=== PATIENT | male | born 1940 | race African-American/Black ===

== ENCOUNTER 2017-12-08 14:27 | Inpatient (IN) ==
[2017-12-08] MEDS ORDERED: NITROGLYCERIN 2% OINT 1 INCH/GM PACK TOP STA (14:44)
[2017-12-08] MEDS ORDERED: METOPROLOL TARTRATE 5 MG/5 ML VIAL IV STA (14:44)
[2017-12-08] MEDS ORDERED: ENOXAPARIN 100 MG/ML SYRINGE SUBCUT STA (14:44)
[2017-12-08] MEDS ORDERED: ASPIRIN 325 MG TABLET PO STA (14:44)
[2017-12-08] MEDS ORDERED: MORPHINE 4 MG/1 ML VIAL IV PRN (14:44)
[2017-12-08] MEDS ORDERED: ONDANSETRON 4 MG/2 ML VIAL IV PRN (14:44)
[2017-12-08] MEDS ORDERED: NITROGLYCERIN SL 0.4 MG TABLET SL PRN (14:44)
[2017-12-08 15:20] LABS: Basophils % 0.5 % (0.0-0.8); Eosinophils # 0.2 10*3/uL (0.0-0.87); Eosinophils % 3.3 % (0.00-10.9); Hematocrit 43.9 VOL% (42.0-52.0); Hemoglobin 14.4 GM/DL (14.0-18.0); Immature Granulocytes % 0.2 %; Immature Granulocytes Absolute 0.01 #; Lymphocytes # 1.7 10*3/uL (1.4-4.0); Lymphocytes % 25.5 % (21.2-54.2); Mean Corpuscular HGB Conc 32.8 GM/DL (32-36); Mean Corpuscular Hemoglobin 32 PG (27-34); Mean Corpuscular Volume 97.1 FL (87-102); Mean Platelet Volume 9.2 FL (9.6-12.0); Monocytes # 0.9 10*3/uL (0.11-0.8); Monocytes % 13.7 % (1.7-12.7); Neutrophils # 3.8 10*3/uL (1.4-7.4); Neutrophils % 56.8 % (38.7-73.9); Platelet Count 176 T/CUMM (130-400); Red Blood Count 4.52 MC/CUMM (3.8-5.5); Red Cell Distribution Width 13.6 % (9.3-17.3); White Blood Count 6.6 T/CUMM (4-12)
[2017-12-08 15:30] LABS: PT Patient Result 10.7 SECS
[2017-12-08 15:46] LABS: Albumin 3.5 G/DL (3.4-5.0); Bilirubin,Total 1.2 MG/DL (0.2-1.0); Calcium 8.6 MG/DL (8.5-10.1); Total Protein 6.5 G/DL (6.4-8.3)
[2017-12-08 15:47] LABS: Potassium 3.2 MMOL/L (3.5-5.1)
[2017-12-08] MEDS ORDERED: FAMOTIDINE 20 MG TABLET PO PRN (17:21)
[2017-12-08 17:55] LABS: Hemoglobin A1C 5.4 % (4.2-6.3)
[2017-12-08 18:08] LABS: Theophylline 10.9 UG/ML (10-20)
[2017-12-08] MEDS: APIXABAN 5 MG TABLET PO SCH (18:09)
[2017-12-08] MEDS ORDERED: MAGNESIUM SULF RIDER 4 GM in PREMIX 1 EACH IV PRN (18:52)
[2017-12-08] MEDS ORDERED: MAGNESIUM SULF RIDER 2 GM in PREMIX 1 EACH IV PRN (18:52)
[2017-12-08 20:43] LABS: ABG Base Excess -1.2 MMOL/L (-2.5-2.5); ABG HCO3 23.3 MMOL/L (20-26); ABG Oxygen Saturation 94.3 % (95-100); ABG PCO2 36.5 MM HG (35-48); ABG PH 7.407 (7.35-7.45); ABG PO2 69.5 MM HG (80-95); ABG TCO2 19.9 MMOL/L (23-27); Allen Test Positive
[2017-12-08] MEDS: THEOPHYLLINE ER 300 MG TABLET PO SCH (20:49)
[2017-12-08] MEDS: hydrALAZINE 25 MG TABLET PO SCH (20:49)
[2017-12-08] MEDS: POTASSIUM CHLORIDE 10 MEQ TABLET PO SCH (20:49)
[2017-12-08] MEDS: ATORVASTATIN 10 MG TABLET PO SCH (20:49)
[2017-12-08] MEDS: CARBIDOPA/LEVODOPA 25-100 MG TABLET PO SCH (20:50)
[2017-12-08] MEDS: FINASTERIDE 5 MG TABLET PO SCH (20:50)
[2017-12-08] MEDS: DEXTROSE 5% NACL 0.45% 1,000 ML IV SCH (20:50)
[2017-12-08] MEDS: ACETAMINOPHEN 325 MG TABLET PO SCH (21:48)
[2017-12-08] MEDS: GABAPENTIN 100 MG CAPSULE PO SCH (21:48)
[2017-12-09 05:02] LABS: Basophils % 0.6 % (0.0-0.8); Eosinophils # 0.2 10*3/uL (0.0-0.87); Eosinophils % 4.5 % (0.00-10.9); Hematocrit 36.1 VOL% (42.0-52.0); Hemoglobin 11.9 GM/DL (14.0-18.0); Immature Granulocytes % 0.4 %; Immature Granulocytes Absolute 0.02 #; Lymphocytes # 1.2 10*3/uL (1.4-4.0); Mean Corpuscular Hemoglobin 32 PG (27-34); Mean Corpuscular Volume 98.4 FL (87-102); Mean Platelet Volume 10.1 FL (9.6-12.0); Monocytes # 0.8 10*3/uL (0.11-0.8); Monocytes % 15.2 % (1.7-12.7); Neutrophils # 2.7 10*3/uL (1.4-7.4); Neutrophils % 54.3 % (38.7-73.9); Platelet Count 148 T/CUMM (130-400); Red Blood Count 3.67 MC/CUMM (3.8-5.5); Red Cell Distribution Width 13.5 % (9.3-17.3); White Blood Count 4.9 T/CUMM (4-12)
[2017-12-09] MEDS: APIXABAN 5 MG TABLET PO SCH ×2 (05:14→17:21)
[2017-12-09 05:35] LABS: Alanine Aminotransferase < 6 U/L (16-61); Albumin 2.7 G/DL (3.4-5.0); Alkaline Phosphatase 67 U/L (45-117); Aspartate Amino Transferase 10 U/L (0-37); Blood Urea Nitrogen 11 MG/DL (7-18); Calcium 7.9 MG/DL (8.5-10.1); Glucose 95 MG/DL (74-106); Osmolality,Calculated 286.7 MOS/KG (273-304); Potassium 3.7 MMOL/L (3.5-5.1); Sodium 145 MMOL/L (136-145); Total Protein 4.9 G/DL (6.4-8.3)
[2017-12-09] MEDS: CARBIDOPA/LEVODOPA 25-100 MG TABLET PO SCH ×3 (11:34→20:24)
[2017-12-09] MEDS: hydrALAZINE 25 MG TABLET PO SCH ×3 (11:34→20:24)
[2017-12-09] MEDS: GABAPENTIN 100 MG CAPSULE PO SCH ×3 (11:34→20:24)
[2017-12-09] MEDS: ASPIRIN CHEW 81 MG TABLET PO SCH (11:48)
[2017-12-09] MEDS: amLODIPine 5 MG TABLET PO SCH (11:48)
[2017-12-09] MEDS: THEOPHYLLINE ER 300 MG TABLET PO SCH ×2 (11:48→20:24)
[2017-12-09] MEDS: MAGNESIUM OXIDE 400 MG TABLET PO SCH (11:48)
[2017-12-09] MEDS: PANTOPRAZOLE 40 MG TABLET PO SCH (11:48)
[2017-12-09] MEDS: LISINOPRIL 20 MG TABLET PO SCH (11:48)
[2017-12-09] MEDS: FUROSEMIDE 40 MG/4 ML VIAL IV SCH ×2 (11:51→17:21)
[2017-12-09] MEDS: ACETAMINOPHEN 325 MG TABLET PO SCH ×2 (13:11→20:24)
[2017-12-09] MEDS: DEXTROSE 5% NACL 0.45% 1,000 ML IV SCH ×2 (15:03→23:25)
[2017-12-09] MEDS: FINASTERIDE 5 MG TABLET PO SCH (20:24)
[2017-12-09] MEDS: ATORVASTATIN 10 MG TABLET PO SCH (20:24)
[2017-12-09] MEDS: POTASSIUM CHLORIDE 10 MEQ TABLET PO SCH (20:24)
[2017-12-10 05:35] LABS: Basophils % 0.4 % (0.0-0.8); Eosinophils # 0.2 10*3/uL (0.0-0.87); Hemoglobin 13.3 GM/DL (14.0-18.0); Immature Granulocytes % 0.2 %; Immature Granulocytes Absolute 0.01 #; Lymphocytes # 1.3 10*3/uL (1.4-4.0); Lymphocytes % 24.4 % (21.2-54.2); Mean Corpuscular HGB Conc 34.1 GM/DL (32-36); Mean Corpuscular Hemoglobin 32 PG (27-34); Mean Platelet Volume 9.2 FL (9.6-12.0); Monocytes # 0.8 10*3/uL (0.11-0.8); Neutrophils # 3.1 10*3/uL (1.4-7.4); Platelet Count 173 T/CUMM (130-400); Red Blood Count 4.15 MC/CUMM (3.8-5.5); Red Cell Distribution Width 13.2 % (9.3-17.3); White Blood Count 5.4 T/CUMM (4-12)
[2017-12-10 06:13] LABS: Alanine Aminotransferase < 6 U/L (16-61); Albumin 2.7 G/DL (3.4-5.0); Alkaline Phosphatase 82 U/L (45-117); Aspartate Amino Transferase 14 U/L (0-37); Blood Urea Nitrogen 13 MG/DL (7-18); Calcium 8.3 MG/DL (8.5-10.1); Glucose 90 MG/DL (74-106); Osmolality,Calculated 282.1 MOS/KG (273-304); Potassium 3.1 MMOL/L (3.5-5.1); Sodium 142 MMOL/L (136-145); Total Protein 5.6 G/DL (6.4-8.3)
[2017-12-10] MEDS: APIXABAN 5 MG TABLET PO SCH ×2 (06:20→17:12)
[2017-12-10] MEDS: DEXTROSE 5% NACL 0.45% 1,000 ML IV SCH (06:20)
[2017-12-10] MEDS: POTASSIUM CHLORIDE RIDER 10 MEQ in PREMIX 1 EACH IV PRN ×2 (06:52→08:24)
[2017-12-10] MEDS: hydrALAZINE 25 MG TABLET PO SCH ×3 (09:16→20:53)
[2017-12-10] MEDS: PANTOPRAZOLE 40 MG TABLET PO SCH (09:16)
[2017-12-10] MEDS: LISINOPRIL 20 MG TABLET PO SCH (09:16)
[2017-12-10] MEDS: GABAPENTIN 100 MG CAPSULE PO SCH ×3 (09:16→20:53)
[2017-12-10] MEDS: THEOPHYLLINE ER 300 MG TABLET PO SCH ×2 (09:16→20:53)
[2017-12-10] MEDS: MAGNESIUM OXIDE 400 MG TABLET PO SCH (09:16)
[2017-12-10] MEDS: ASPIRIN CHEW 81 MG TABLET PO SCH (09:17)
[2017-12-10] MEDS: CARBIDOPA/LEVODOPA 25-100 MG TABLET PO SCH ×3 (09:18→20:53)
[2017-12-10] MEDS: amLODIPine 5 MG TABLET PO SCH (09:18)
[2017-12-10] MEDS: ACETAMINOPHEN 325 MG TABLET PO SCH ×2 (09:18→20:53)
[2017-12-10] MEDS: FUROSEMIDE 40 MG/4 ML VIAL IV SCH ×2 (09:20→15:44)
[2017-12-10 09:57] LABS: Apearance,Urine CLEAR (Clear); Bilirubin,Urine Negative (Negative); Blood, Urine Large mg/dL (Negative); Glucose,Urine (UA) Negative (Negative); Ketones,Urine Negative (Negative); Mucus,Urine Occasional /LPF (Occasional); Nitrite,Urine Negative (Negative); Protein,Urine Negative; RBC,Urine 337 /HPF (0-4); Urine Color Yellow (Yellow); Urine Urobilinogen < 2.0 EU/DL (0.2-1.0); WBC,Urine 14 /HPF (0-6)
[2017-12-10] MEDS: POTASSIUM CHLORIDE 20 MEQ PACK PO SCH ×2 (10:24→13:18)
[2017-12-10] MEDS: FINASTERIDE 5 MG TABLET PO SCH (20:53)
[2017-12-10] MEDS: POTASSIUM CHLORIDE 10 MEQ TABLET PO SCH (20:54)
[2017-12-10] MEDS: ATORVASTATIN 10 MG TABLET PO SCH (20:54)
[2017-12-10] MEDS ORDERED: APIXABAN 5 MG TABLET PO SCH (21:00)
[2017-12-11 02:28] LABS: Basophils % 0.5 % (0.0-0.8); Eosinophils # 0.3 10*3/uL (0.0-0.87); Eosinophils % 4.3 % (0.00-10.9); Hematocrit 40.5 VOL% (42.0-52.0); Hemoglobin 14.3 GM/DL (14.0-18.0); Immature Granulocytes % 0.3 %; Immature Granulocytes Absolute 0.02 #; Lymphocytes # 1.3 10*3/uL (1.4-4.0); Lymphocytes % 21.3 % (21.2-54.2); Mean Corpuscular HGB Conc 35.3 GM/DL (32-36); Mean Corpuscular Hemoglobin 33 PG (27-34); Mean Corpuscular Volume 92.9 FL (87-102); Mean Platelet Volume 9.7 FL (9.6-12.0); Monocytes # 0.8 10*3/uL (0.11-0.8); Monocytes % 13.3 % (1.7-12.7); Neutrophils # 3.6 10*3/uL (1.4-7.4); Neutrophils % 60.3 % (38.7-73.9); Platelet Count 173 T/CUMM (130-400); Red Blood Count 4.36 MC/CUMM (3.8-5.5); Red Cell Distribution Width 13.2 % (9.3-17.3); White Blood Count 5.9 T/CUMM (4-12)
[2017-12-11 02:55] LABS: Alanine Aminotransferase < 6 U/L (16-61); Albumin 2.9 G/DL (3.4-5.0); Alkaline Phosphatase 95 U/L (45-117); Aspartate Amino Transferase 15 U/L (0-37); Blood Urea Nitrogen 19 MG/DL (7-18); Calcium 8.9 MG/DL (8.5-10.1); Glucose 112 MG/DL (74-106); Osmolality,Calculated 283.3 MOS/KG (273-304); Potassium 3.5 MMOL/L (3.5-5.1); Sodium 141 MMOL/L (136-145)
[2017-12-11] MEDS: APIXABAN 5 MG TABLET PO SCH ×2 (06:42→17:05)
[2017-12-11] MEDS: LISINOPRIL 20 MG TABLET PO SCH (08:45)
[2017-12-11] MEDS: BISACODYL 5 MG TABLET PO PRN (08:45)
[2017-12-11] MEDS: ACETAMINOPHEN 325 MG TABLET PO SCH ×2 (08:45→20:27)
[2017-12-11] MEDS: GABAPENTIN 100 MG CAPSULE PO SCH ×3 (08:45→20:28)
[2017-12-11] MEDS: hydrALAZINE 25 MG TABLET PO SCH ×3 (08:45→20:26)
[2017-12-11] MEDS: PANTOPRAZOLE 40 MG TABLET PO SCH (08:45)
[2017-12-11] MEDS: THEOPHYLLINE ER 300 MG TABLET PO SCH ×2 (08:45→20:26)
[2017-12-11] MEDS: MAGNESIUM OXIDE 400 MG TABLET PO SCH (08:45)
[2017-12-11] MEDS: CARBIDOPA/LEVODOPA 25-100 MG TABLET PO SCH ×3 (08:46→20:27)
[2017-12-11] MEDS: ASPIRIN CHEW 81 MG TABLET PO SCH (08:46)
[2017-12-11] MEDS: amLODIPine 5 MG TABLET PO SCH (08:46)
[2017-12-11] MEDS: FUROSEMIDE 40 MG/4 ML VIAL IV SCH (08:49)
[2017-12-11] MEDS: cefTRIAXone 2,000 MG in SYRINGE 1 EACH IV SCH (08:51)
[2017-12-11] MEDS ORDERED: LACTULOSE 20 GM/30 ML UDCUP PO ONE (09:14)
[2017-12-11] MEDS ORDERED: MAGNESIUM HYDROXIDE SUSP 30 ML UDCUP PO ONE (09:14)
[2017-12-11] MEDS: POTASSIUM CHLORIDE 20 MEQ TABLET PO SCH ×2 (09:28→12:27)
[2017-12-11] MEDS: FINASTERIDE 5 MG TABLET PO SCH (20:28)
[2017-12-11] MEDS: POTASSIUM CHLORIDE 10 MEQ TABLET PO SCH (20:28)
[2017-12-11] MEDS: ATORVASTATIN 10 MG TABLET PO SCH (20:28)
[2017-12-12 05:00] LABS: Basophils % 0.5 % (0.0-0.8); Eosinophils # 0.3 10*3/uL (0.0-0.87); Eosinophils % 4.7 % (0.00-10.9); Hematocrit 42.9 VOL% (42.0-52.0); Hemoglobin 14.4 GM/DL (14.0-18.0); Immature Granulocytes % 0.5 %; Immature Granulocytes Absolute 0.03 #; Lymphocytes # 1.3 10*3/uL (1.4-4.0); Lymphocytes % 24.5 % (21.2-54.2); Mean Corpuscular HGB Conc 33.6 GM/DL (32-36); Mean Corpuscular Hemoglobin 32 PG (27-34); Mean Platelet Volume 9.4 FL (9.6-12.0); Monocytes # 0.7 10*3/uL (0.11-0.8); Monocytes % 13.1 % (1.7-12.7); Neutrophils # 3.1 10*3/uL (1.4-7.4); Neutrophils % 56.7 % (38.7-73.9); Platelet Count 178 T/CUMM (130-400); Red Blood Count 4.47 MC/CUMM (3.8-5.5); Red Cell Distribution Width 13.4 % (9.3-17.3); White Blood Count 5.5 T/CUMM (4-12)
[2017-12-12 05:39] LABS: Bilirubin,Total 0.5 MG/DL (0.2-1.0); Calcium 8.8 MG/DL (8.5-10.1); Osmolality,Calculated 279.4 MOS/KG (273-304); Potassium 4.2 MMOL/L (3.5-5.1)
[2017-12-12] MEDS: APIXABAN 5 MG TABLET PO SCH ×2 (06:09→17:40)
[2017-12-12] MEDS: BISACODYL 5 MG TABLET PO PRN ×2 (06:09→16:41)
[2017-12-12] MEDS: hydrALAZINE 25 MG TABLET PO SCH ×3 (08:40→21:32)
[2017-12-12] MEDS: MAGNESIUM OXIDE 400 MG TABLET PO SCH (08:40)
[2017-12-12] MEDS: LISINOPRIL 20 MG TABLET PO SCH (08:40)
[2017-12-12] MEDS: PANTOPRAZOLE 40 MG TABLET PO SCH (08:40)
[2017-12-12] MEDS: CARBIDOPA/LEVODOPA 25-100 MG TABLET PO SCH ×3 (08:41→21:26)
[2017-12-12] MEDS: THEOPHYLLINE ER 300 MG TABLET PO SCH ×2 (08:41→21:24)
[2017-12-12] MEDS: amLODIPine 5 MG TABLET PO SCH (08:42)
[2017-12-12] MEDS: ACETAMINOPHEN 325 MG TABLET PO SCH ×2 (08:42→21:27)
[2017-12-12] MEDS: ASPIRIN CHEW 81 MG TABLET PO SCH (08:43)
[2017-12-12] MEDS: GABAPENTIN 100 MG CAPSULE PO SCH ×3 (08:43→21:27)
[2017-12-12] MEDS ORDERED: FUROSEMIDE 40 MG/4 ML VIAL IV SCH (09:00)
[2017-12-12] MEDS: DICLOFENAC 1.3% PATCH 5/PACK TRANSDERM SCH ×2 (15:47→21:24)
[2017-12-12] MEDS ORDERED: amLODIPine 2.5 MG TABLET PO SCH (17:04)
[2017-12-12] MEDS: cefTRIAXone 2,000 MG in SYRINGE 1 EACH IV SCH (17:30)
[2017-12-12] MEDS: FINASTERIDE 5 MG TABLET PO SCH (21:25)
[2017-12-12] MEDS: ATORVASTATIN 10 MG TABLET PO SCH (21:27)
[2017-12-12] MEDS: POTASSIUM CHLORIDE 10 MEQ TABLET PO SCH (21:28)
[2017-12-12] MEDS: POLYETHYLENE GLYCOL POWDER 17 GM PACK PO PRN (22:27)
[2017-12-13] MEDS: APIXABAN 5 MG TABLET PO SCH ×2 (05:48→17:12)
[2017-12-13] MEDS: THEOPHYLLINE ER 300 MG TABLET PO SCH ×2 (10:19→21:03)
[2017-12-13] MEDS: ACETAMINOPHEN 325 MG TABLET PO SCH ×2 (10:19→21:04)
[2017-12-13] MEDS: LISINOPRIL 10 MG TABLET PO SCH (10:20)
[2017-12-13] MEDS: GABAPENTIN 100 MG CAPSULE PO SCH ×3 (10:20→21:03)
[2017-12-13] MEDS: MAGNESIUM OXIDE 400 MG TABLET PO SCH (10:20)
[2017-12-13] MEDS: PANTOPRAZOLE 40 MG TABLET PO SCH (10:21)
[2017-12-13] MEDS: CARBIDOPA/LEVODOPA 25-100 MG TABLET PO SCH ×3 (10:21→21:04)
[2017-12-13] MEDS: ASPIRIN CHEW 81 MG TABLET PO SCH (10:22)
[2017-12-13] MEDS: DICLOFENAC 1.3% PATCH 5/PACK TRANSDERM SCH ×2 (10:22→21:09)
[2017-12-13] MEDS: hydrALAZINE 25 MG TABLET PO SCH (10:33)
[2017-12-13] MEDS: SUCRALFATE 1 GM/10 ML UDCUP PO SCH ×2 (17:12→21:08)
[2017-12-13] MEDS: POTASSIUM CHLORIDE 10 MEQ TABLET PO SCH (21:05)
[2017-12-13] MEDS: FINASTERIDE 5 MG TABLET PO SCH (21:05)
[2017-12-13] MEDS: ATORVASTATIN 10 MG TABLET PO SCH (21:05)
[2017-12-14 05:26] LABS: Calcium 8.5 MG/DL (8.5-10.1); Osmolality,Calculated 279.5 MOS/KG (273-304); Potassium 4.2 MMOL/L (3.5-5.1)
[2017-12-14] MEDS: CARBIDOPA/LEVODOPA 25-100 MG TABLET PO SCH ×3 (09:27→21:46)
[2017-12-14] MEDS: LISINOPRIL 10 MG TABLET PO SCH (09:27)
[2017-12-14] MEDS: GABAPENTIN 100 MG CAPSULE PO SCH ×3 (09:27→21:47)
[2017-12-14] MEDS: MAGNESIUM OXIDE 400 MG TABLET PO SCH (09:27)
[2017-12-14] MEDS: PANTOPRAZOLE 40 MG TABLET PO SCH (09:27)
[2017-12-14] MEDS: ACETAMINOPHEN 325 MG TABLET PO SCH ×2 (09:27→21:47)
[2017-12-14] MEDS: ASPIRIN CHEW 81 MG TABLET PO SCH (09:27)
[2017-12-14] MEDS: THEOPHYLLINE ER 300 MG TABLET PO SCH ×2 (09:27→21:46)
[2017-12-14] MEDS: SUCRALFATE 1 GM/10 ML UDCUP PO SCH ×4 (09:27→21:46)
[2017-12-14] MEDS: APIXABAN 5 MG TABLET PO SCH ×2 (09:28→17:05)
[2017-12-14] MEDS: DICLOFENAC 1.3% PATCH 5/PACK TRANSDERM SCH (11:14)
[2017-12-14] MEDS: POLYETHYLENE GLYCOL POWDER 17 GM PACK PO PRN (21:46)
[2017-12-14] MEDS: FINASTERIDE 5 MG TABLET PO SCH (21:47)
[2017-12-14] MEDS: ATORVASTATIN 10 MG TABLET PO SCH (21:47)
[2017-12-14] MEDS: POTASSIUM CHLORIDE 10 MEQ TABLET PO SCH (21:47)
[2017-12-15 06:01] LABS: Basophils % 0.6 % (0.0-0.8); Eosinophils # 0.2 10*3/uL (0.0-0.87); Eosinophils % 4.4 % (0.00-10.9); Hematocrit 39.2 VOL% (42.0-52.0); Hemoglobin 13.2 GM/DL (14.0-18.0); Immature Granulocytes % 0.4 %; Immature Granulocytes Absolute 0.02 #; Lymphocytes # 1.3 10*3/uL (1.4-4.0); Lymphocytes % 25.7 % (21.2-54.2); Mean Corpuscular HGB Conc 33.7 GM/DL (32-36); Mean Corpuscular Hemoglobin 33 PG (27-34); Mean Corpuscular Volume 96.8 FL (87-102); Mean Platelet Volume 9.4 FL (9.6-12.0); Monocytes # 0.7 10*3/uL (0.11-0.8); Monocytes % 14.1 % (1.7-12.7); Neutrophils # 2.7 10*3/uL (1.4-7.4); Neutrophils % 54.8 % (38.7-73.9); Platelet Count 173 T/CUMM (130-400); Red Blood Count 4.05 MC/CUMM (3.8-5.5); Red Cell Distribution Width 12.8 % (9.3-17.3)
[2017-12-15 06:40] LABS: Calcium 8.5 MG/DL (8.5-10.1); Osmolality,Calculated 282.3 MOS/KG (273-304); Potassium 4.4 MMOL/L (3.5-5.1)
[2017-12-15] MEDS: APIXABAN 5 MG TABLET PO SCH ×2 (07:01→10:07)
[2017-12-15] MEDS: SUCRALFATE 1 GM/10 ML UDCUP PO SCH ×2 (07:01→11:48)
[2017-12-15] MEDS: GABAPENTIN 100 MG CAPSULE PO SCH ×2 (10:01→14:25)
[2017-12-15] MEDS: ASPIRIN CHEW 81 MG TABLET PO SCH (10:01)
[2017-12-15] MEDS: ACETAMINOPHEN 325 MG TABLET PO SCH (10:01)
[2017-12-15] MEDS: LISINOPRIL 10 MG TABLET PO SCH (10:01)
[2017-12-15] MEDS: PANTOPRAZOLE 40 MG TABLET PO SCH (10:01)
[2017-12-15] MEDS: MAGNESIUM OXIDE 400 MG TABLET PO SCH (10:02)
[2017-12-15] MEDS: CARBIDOPA/LEVODOPA 25-100 MG TABLET PO SCH ×2 (10:04→14:25)
[2017-12-15] MEDS: THEOPHYLLINE ER 300 MG TABLET PO SCH (10:05)
[2017-12-15 11:55] VITALS: BP 133/90
== END 2017-12-15 14:40 | disposition home or self-care (01) | DRG 392 ==
LOC: N.ED 14:27 → SUATTDRO 16:31 → N.EDINP 16:31 → N.TELEN 17:46
PROVIDERS: ADMIT Internal Medicine; ATTEND Internal Medicine

== ENCOUNTER 2018-07-28 13:47 | Inpatient (IN) ==
[2018-07-28 14:38] LABS: Basophils % 0.5 % (0.0-0.8); Eosinophils # 0.1 10*3/uL (0.0-0.87); Eosinophils % 1.3 % (0.00-10.9); Hematocrit 45.8 VOL% (42.0-52.0); Hemoglobin 14.9 GM/DL (14.0-18.0); Immature Granulocytes % 0.5 %; Immature Granulocytes Absolute 0.03 #; Lymphocytes # 1.3 10*3/uL (1.4-4.0); Lymphocytes % 20.3 % (21.2-54.2); Mean Corpuscular HGB Conc 32.5 GM/DL (32-36); Mean Corpuscular Hemoglobin 31 PG (27-34); Mean Corpuscular Volume 96.2 FL (87-102); Mean Platelet Volume 9.4 FL (9.6-12.0); Monocytes # 0.6 10*3/uL (0.11-0.8); Neutrophils # 4.4 10*3/uL (1.4-7.4); Neutrophils % 68.4 % (38.7-73.9); Platelet Count 177 T/CUMM (130-400); Red Blood Count 4.76 MC/CUMM (3.8-5.5); Red Cell Distribution Width 13.2 % (9.3-17.3); White Blood Count 6.4 T/CUMM (4-12)
[2018-07-28] MEDS ORDERED: ASPIRIN 325 MG TABLET PO STA (14:52)
[2018-07-28 15:10] LABS: Blood Urea Nitrogen 15 MG/DL (7-18); Calcium 8.9 MG/DL (8.5-10.1); Glucose 100 MG/DL (74-106); Sodium 143 MMOL/L (136-145); Troponin I 0.018 NG/ML (0.00-0.045)
[2018-07-28] MEDS ORDERED: APIXABAN 5 MG TABLET PO SCH (18:00)
[2018-07-28] MEDS: THEOPHYLLINE ER 300 MG TABLET PO SCH (18:29)
[2018-07-28 18:50] LABS: Risk Ratio 2.09
[2018-07-28] MEDS ORDERED: MAGNESIUM OXIDE 400 MG TABLET PO SCH (19:00)
[2018-07-28] MEDS ORDERED: CETIRIZINE 10 MG TABLET PO SCH (19:00)
[2018-07-28] MEDS: FINASTERIDE 5 MG TABLET PO SCH (20:28)
[2018-07-28] MEDS: DOXAZOSIN 1 MG TABLET PO SCH (20:28)
[2018-07-28] MEDS: POTASSIUM CHLORIDE 10 MEQ TABLET PO SCH (20:30)
[2018-07-28] MEDS: TAMSULOSIN 0.4 MG CAPSULE PO SCH (20:31)
[2018-07-28] MEDS: ATORVASTATIN 10 MG TABLET PO SCH (20:31)
[2018-07-28] MEDS: CARBIDOPA/LEVODOPA 25-100 MG TABLET PO SCH (20:31)
[2018-07-28] MEDS: CETIRIZINE 10 MG TABLET PO SCH (20:31)
[2018-07-28] MEDS: MAGNESIUM OXIDE 400 MG TABLET PO SCH (20:31)
[2018-07-28] MEDS: APIXABAN 5 MG TABLET PO SCH (20:31)
[2018-07-28] MEDS: hydrALAZINE 25 MG TABLET PO SCH (20:31)
[2018-07-29 04:30] LABS: Alanine Aminotransferase < 6 U/L (16-61); Albumin 2.7 G/DL (3.4-5.0); Alkaline Phosphatase 98 U/L (45-117); Aspartate Amino Transferase 10 U/L (0-37); Blood Urea Nitrogen 14 MG/DL (7-18); Calcium 8.2 MG/DL (8.5-10.1); Glucose 88 MG/DL (74-106); Potassium 3.5 MMOL/L (3.5-5.1); Sodium 143 MMOL/L (136-145); Total Protein 5.4 G/DL (6.4-8.3)
[2018-07-29] MEDS: THEOPHYLLINE ER 300 MG TABLET PO SCH ×2 (07:33→16:07)
[2018-07-29] MEDS ORDERED: PANTOPRAZOLE 40 MG TABLET PO SCH (09:00)
[2018-07-29] MEDS: LISINOPRIL 10 MG TABLET PO SCH (09:20)
[2018-07-29] MEDS: APIXABAN 5 MG TABLET PO SCH ×2 (09:20→20:48)
[2018-07-29] MEDS: CARBIDOPA/LEVODOPA 25-100 MG TABLET PO SCH ×3 (09:20→20:47)
[2018-07-29] MEDS: FUROSEMIDE 20 MG TABLET PO SCH (09:21)
[2018-07-29] MEDS: hydrALAZINE 25 MG TABLET PO SCH ×2 (09:21→20:49)
[2018-07-29] MEDS: ASPIRIN EC 325 MG TABLET PO SCH (09:21)
[2018-07-29] MEDS: ATORVASTATIN 10 MG TABLET PO SCH (20:46)
[2018-07-29] MEDS: TAMSULOSIN 0.4 MG CAPSULE PO SCH (20:46)
[2018-07-29] MEDS: POTASSIUM CHLORIDE 10 MEQ TABLET PO SCH (20:48)
[2018-07-29] MEDS: MAGNESIUM OXIDE 400 MG TABLET PO SCH (20:48)
[2018-07-29] MEDS: CETIRIZINE 10 MG TABLET PO SCH (20:48)
[2018-07-29] MEDS: DOXAZOSIN 1 MG TABLET PO SCH (20:49)
[2018-07-29] MEDS: FINASTERIDE 5 MG TABLET PO SCH (20:49)
[2018-07-30] MEDS: LISINOPRIL 10 MG TABLET PO SCH (08:35)
[2018-07-30] MEDS: ASPIRIN EC 325 MG TABLET PO SCH (08:36)
[2018-07-30] MEDS: hydrALAZINE 25 MG TABLET PO SCH ×2 (08:37→20:56)
[2018-07-30] MEDS: CARBIDOPA/LEVODOPA 25-100 MG TABLET PO SCH ×3 (08:37→20:57)
[2018-07-30] MEDS: THEOPHYLLINE ER 300 MG TABLET PO SCH ×2 (08:37→16:57)
[2018-07-30] MEDS: FUROSEMIDE 20 MG TABLET PO SCH (08:37)
[2018-07-30] MEDS: PANTOPRAZOLE 40 MG TABLET PO SCH ×2 (08:37→20:56)
[2018-07-30] MEDS: APIXABAN 5 MG TABLET PO SCH ×2 (08:40→20:58)
[2018-07-30] MEDS: amLODIPine 5 MG TABLET PO SCH (09:02)
[2018-07-30] MEDS: TAMSULOSIN 0.4 MG CAPSULE PO SCH (20:56)
[2018-07-30] MEDS: POTASSIUM CHLORIDE 10 MEQ TABLET PO SCH (20:56)
[2018-07-30] MEDS: FINASTERIDE 5 MG TABLET PO SCH (20:57)
[2018-07-30] MEDS: ATORVASTATIN 10 MG TABLET PO SCH (20:57)
[2018-07-30] MEDS: CETIRIZINE 10 MG TABLET PO SCH (20:57)
[2018-07-30] MEDS: MAGNESIUM OXIDE 400 MG TABLET PO SCH (20:57)
[2018-07-31] MEDS: THEOPHYLLINE ER 300 MG TABLET PO SCH ×2 (09:46→16:54)
[2018-07-31] MEDS: APIXABAN 5 MG TABLET PO SCH ×2 (09:47→21:34)
[2018-07-31] MEDS: ASPIRIN EC 325 MG TABLET PO SCH (09:47)
[2018-07-31] MEDS: hydrALAZINE 25 MG TABLET PO SCH (09:47)
[2018-07-31] MEDS: amLODIPine 5 MG TABLET PO SCH (09:47)
[2018-07-31] MEDS: FUROSEMIDE 20 MG TABLET PO SCH (09:47)
[2018-07-31] MEDS: PANTOPRAZOLE 40 MG TABLET PO SCH ×2 (09:48→21:35)
[2018-07-31] MEDS: CARBIDOPA/LEVODOPA 25-100 MG TABLET PO SCH ×3 (09:48→21:34)
[2018-07-31] MEDS: LISINOPRIL 10 MG TABLET PO SCH (09:48)
[2018-07-31] MEDS: POLYETHYLENE GLYCOL POWDER 17 GM PACK PO SCH ×2 (09:57→21:33)
[2018-07-31] MEDS: SUCRALFATE 1 GM/10 ML UDCUP PO SCH ×2 (16:54→21:33)
[2018-07-31] MEDS: MAGNESIUM OXIDE 400 MG TABLET PO SCH (21:34)
[2018-07-31] MEDS: FINASTERIDE 5 MG TABLET PO SCH (21:34)
[2018-07-31] MEDS: ATORVASTATIN 10 MG TABLET PO SCH (21:35)
[2018-07-31] MEDS: POTASSIUM CHLORIDE 10 MEQ TABLET PO SCH (21:35)
[2018-07-31] MEDS: TAMSULOSIN 0.4 MG CAPSULE PO SCH (21:35)
[2018-07-31] MEDS: CETIRIZINE 10 MG TABLET PO SCH (21:35)
[2018-08-01 04:35] LABS: Basophils # 0.1 10*3/uL (0.0-0.2); Basophils % 0.8 % (0.0-0.8); Eosinophils # 0.2 10*3/uL (0.0-0.87); Eosinophils % 3.6 % (0.00-10.9); Hematocrit 42.3 VOL% (42.0-52.0); Immature Granulocytes % 0.3 %; Immature Granulocytes Absolute 0.02 #; Lymphocytes # 1.5 10*3/uL (1.4-4.0); Lymphocytes % 23.5 % (21.2-54.2); Mean Corpuscular HGB Conc 33.1 GM/DL (32-36); Mean Corpuscular Hemoglobin 31 PG (27-34); Mean Corpuscular Volume 94.6 FL (87-102); Monocytes # 0.9 10*3/uL (0.11-0.8); Monocytes % 15.2 % (1.7-12.7); Neutrophils # 3.5 10*3/uL (1.4-7.4); Neutrophils % 56.6 % (38.7-73.9); Platelet Count 176 T/CUMM (130-400); Red Blood Count 4.47 MC/CUMM (3.8-5.5); White Blood Count 6.2 T/CUMM (4-12)
[2018-08-01 04:48] LABS: Calcium 8.3 MG/DL (8.5-10.1); Osmolality,Calculated 278.5 MOS/KG (273-304); Potassium 3.8 MMOL/L (3.5-5.1)
[2018-08-01 08:17] VITALS: BP 166/88
[2018-08-01] MEDS ORDERED: LISINOPRIL 10 MG TABLET PO SCH (09:00)
[2018-08-01] MEDS: FUROSEMIDE 20 MG TABLET PO SCH (09:27)
[2018-08-01] MEDS: PANTOPRAZOLE 40 MG TABLET PO SCH (09:27)
[2018-08-01] MEDS: CARBIDOPA/LEVODOPA 25-100 MG TABLET PO SCH (09:27)
[2018-08-01] MEDS: APIXABAN 5 MG TABLET PO SCH (09:27)
[2018-08-01] MEDS: amLODIPine 5 MG TABLET PO SCH (09:27)
[2018-08-01] MEDS: THEOPHYLLINE ER 300 MG TABLET PO SCH (09:28)
[2018-08-01] MEDS: SUCRALFATE 1 GM/10 ML UDCUP PO SCH (09:28)
[2018-08-01] MEDS: POLYETHYLENE GLYCOL POWDER 17 GM PACK PO SCH (09:28)
[2018-08-01] MEDS ORDERED: POLYETHYLENE GLYCOL POWDER 17 GM PACK PO PRN (10:27)
[2018-08-01] MEDS ORDERED: hydrALAZINE 25 MG TABLET PO SCH (15:00)
== END 2018-08-01 12:07 | disposition home or self-care (01) | DRG 312 ==
LOC: N.ED 13:47 → N.EDINP 13:47 → N.TELEN 17:35
PROVIDERS: ADMIT Internal Medicine; ATTEND Internal Medicine

== ENCOUNTER 2019-06-16 23:38 | Observation (INO) ==
[2019-06-17] MEDS ORDERED: LORazepam 1 MG TABLET PO STA (00:07)
[2019-06-17] MEDS ORDERED: ALUM/MAG/SIMETH/LIDO VISC 1:1 30 ML BOTTLE PO STA (00:07)
[2019-06-17 00:55] LABS: Alanine Aminotransferase 38 U/L (16-61); Albumin 3.6 G/DL (3.4-5.0); Alkaline Phosphatase 95 U/L (45-117); Aspartate Amino Transferase 59 U/L (0-37); Blood Urea Nitrogen 18 MG/DL (7-18); Calcium 8.9 MG/DL (8.5-10.1); Estimated Glom Filtration Rate 69 ML/MIN; Glucose 100 MG/DL (74-106); Osmolality,Calculated 289.7 MOS/KG (273-304); Total Protein 6.4 G/DL (6.4-8.3)
[2019-06-17] MEDS ORDERED: METOPROLOL TARTRATE 50 MG TABLET PO STA (00:57)
[2019-06-17 01:00] LABS: Troponin I 0.068 NG/ML (0.00-0.045)
[2019-06-17 01:07] LABS: Basophils % 0.4 % (0.0-0.8); Eosinophils # 0.1 10*3/uL (0.0-0.87); Hematocrit 43.6 VOL% (42.0-52.0); Hemoglobin 14.5 GM/DL (14.0-18.0); Immature Granulocytes % 1.4 %; Immature Granulocytes Absolute 0.13 #; Lymphocytes # 0.7 10*3/uL (1.4-4.0); Lymphocytes % 7.7 % (21.2-54.2); Mean Corpuscular HGB Conc 33.3 GM/DL (32-36); Mean Corpuscular Volume 96.5 FL (87-102); Mean Platelet Volume 9.7 FL (9.6-12.0); Monocytes % 9.9 % (1.7-12.7); Neutrophils % 79.6 % (38.7-73.9); Platelet Count 184 T/CUMM (130-400); Red Blood Count 4.52 MC/CUMM (3.8-5.5); Red Cell Distribution Width 12.9 % (9.3-17.3); White Blood Count 9.5 T/CUMM (4-12)
[2019-06-17] MEDS ORDERED: MORPHINE 4 MG/1 ML VIAL IV PRN (04:49)
[2019-06-17] MEDS ORDERED: DOCUSATE SODIUM 100 MG CAPSULE PO PRN (04:49)
[2019-06-17] MEDS ORDERED: ONDANSETRON 4 MG/2 ML VIAL IV PRN (04:49)
[2019-06-17] MEDS ORDERED: NITROGLYCERIN SL 0.4 MG TABLET SL PRN (04:49)
[2019-06-17] MEDS ORDERED: PROMETHAZINE 25 MG/1 ML VIAL IM PRN (04:49)
[2019-06-17] MEDS ORDERED: ACETAMINOPHEN 325 MG TABLET PO PRN (04:49)
[2019-06-17] MEDS: SODIUM CHLORIDE 0.9% 1,000 ML IV SCH (05:10)
[2019-06-17 06:48] LABS: Risk Ratio 1.88; VLDL CHOLESTEROL 9.4 MG/DL
[2019-06-17] MEDS ORDERED: PHENOL 1.4% THROAT SPRAY 177 ML BOTTLE PO ONE (15:31)
[2019-06-17] MEDS ORDERED: PHENOL 1.4% THROAT SPRAY 177 ML BOTTLE PO PRN (15:31)
[2019-06-17] MEDS ORDERED: hydrALAZINE 20 MG/1 ML VIAL IV PRN (17:37)
[2019-06-17] MEDS: amLODIPine 10 MG TABLET PO SCH (17:58)
[2019-06-17] MEDS ORDERED: hydrALAZINE 25 MG TABLET PO SCH (22:52)
[2019-06-18] MEDS: SODIUM CHLORIDE 0.9% 1,000 ML IV SCH (05:21)
[2019-06-18 06:17] LABS: Basophils % 0.5 % (0.0-0.8); Eosinophils # 0.2 10*3/uL (0.0-0.87); Eosinophils % 3.5 % (0.00-10.9); Hematocrit 38.1 VOL% (42.0-52.0); Hemoglobin 12.9 GM/DL (14.0-18.0); Immature Granulocytes % 0.7 %; Immature Granulocytes Absolute 0.04 #; Lymphocytes # 1.4 10*3/uL (1.4-4.0); Lymphocytes % 24.1 % (21.2-54.2); Mean Corpuscular HGB Conc 33.9 GM/DL (32-36); Mean Corpuscular Volume 95.3 FL (87-102); Mean Platelet Volume 9.8 FL (9.6-12.0); Monocytes % 13.1 % (1.7-12.7); Neutrophils % 58.1 % (38.7-73.9); Platelet Count 152 T/CUMM (130-400); Red Cell Distribution Width 12.9 % (9.3-17.3); White Blood Count 5.7 T/CUMM (4-12)
[2019-06-18 06:29] LABS: Calcium 8.4 MG/DL (8.5-10.1); Osmolality,Calculated 289.6 MOS/KG (273-304)
[2019-06-18] MEDS ORDERED: POTASSIUM CHLORIDE 20 MEQ TABLET PO ONE (07:21)
[2019-06-18] MEDS ORDERED: MAGNESIUM OXIDE 400 MG TABLET PO SCH (09:00)
[2019-06-18] MEDS ORDERED: CARBIDOPA/LEVODOPA 25-100 MG TABLET PO SCH (09:00)
[2019-06-18] MEDS ORDERED: LISINOPRIL 5 MG TABLET PO SCH (09:00)
[2019-06-18] MEDS ORDERED: MONTELUKAST 10 MG TABLET PO SCH (09:00)
[2019-06-18] MEDS ORDERED: FUROSEMIDE 40 MG TABLET PO SCH (09:00)
[2019-06-18] MEDS: hydrALAZINE 25 MG TABLET PO SCH ×2 (09:45→16:55)
[2019-06-18] MEDS: amLODIPine 10 MG TABLET PO SCH (09:45)
[2019-06-18 12:35] VITALS: BP 150/89
[2019-06-18] MEDS: SUCRALFATE 1 GM TABLET PO SCH ×2 (14:47→16:55)
[2019-06-18] MEDS ORDERED: THEOPHYLLINE ER 300 MG TABLET PO SCH (17:00)
[2019-06-18] MEDS ORDERED: APIXABAN 5 MG TABLET PO SCH (18:00)
[2019-06-18] MEDS ORDERED: ATORVASTATIN 10 MG TABLET PO SCH (21:00)
[2019-06-18] MEDS ORDERED: TAMSULOSIN 0.4 MG CAPSULE PO SCH (21:00)
[2019-06-18] MEDS ORDERED: FINASTERIDE 5 MG TABLET PO SCH (21:00)
== END 2019-06-18 17:02 | disposition home or self-care (01) ==
LOC: N.ED 23:38 → N.EDINP 23:38 → N.TELEN 06-17 04:16
PROVIDERS: ADMIT Hospitalist; ATTEND Hospitalist